=== PATIENT | female | born 1970 | race American Indian/Alaskan Native ===

== ENCOUNTER 2019-07-25 13:53 | Emergency (ER) | payer SELFPAY ==
[2019-07-25] MEDS ORDERED: IBUPROFEN 800 MG TAB PO ONE (14:13)
[2019-07-25] MEDS ORDERED: traMADol 50 MG TAB PO ONE (14:13)
--- NOTE | 2019-07-25 14:50 | XRay Report ---
CERVICAL SPINE 3 VIEWS INDICATION / CLINICAL INFORMATION: Severe neck pain radiating into the right shoulder. Difficulty swallowing for 2 days. COMPARISON: None available. FINDINGS: BONES / JOINT(S): There are moderate anterior hypertrophic changes from C3-4 through C6-7. There is o nly mild disc space narrowing present. There is no evidence of fracture, subluxation or destructive l esion. SOFT TISSUES: The prevertebral soft tissues and airway are normal. ADDITIONAL FINDINGS: The visualized lung apices are clear. Signer Name: Wild Holbrook MD Signed: 07/25/2019 2:46 PM Workstation Name: [id number]
--- NOTE | 2019-07-25 15:12 | Emergency Department Report ---
ED General Adult HPI - General Chief complaint: Pain General Stated complaint: PAIN IN NECK AND ARM Time Seen by Provider: 07/25/19 14:13 Source: patient Mode of arrival: Ambulatory Limitations: No Limitations - History of Present Illness Initial comments: is a 48-year-old female who is complaining of 10 out of 10 severe pain in the right side of her neck that radiates into her right arm. Patient states the pain is constant. She states that she does not remember having slips and falls. She denies heavy lifting. Patient states any movement of the right upper extremity or with moving her head results and electrical intense pain that radiates down to her fingers. She denies any fever cough cold congestion nausea vomiting at this time. Severity scale (0 -10): 5 - Related Data Previous Rx's Medication Instructions Recorded Last Taken Type Ibuprofen [Motrin 800 MG tab] 800 mg PO Q8HR PRN #10 tablet 07/25/19 Unknown Rx methOCARBAMOL [Robaxin TAB] 500 mg PO Q6H PRN #14 tablet 07/25/19 Unknown Rx Allergies Allergy/AdvReac Type Severity Reaction Status Date / Time No Known Allergies Allergy Unverified 07/25/19 14:02 ED Review of Systems ROS: Stated complaint: PAIN IN NECK AND ARM Other details as noted in HPI Comment: All other systems reviewed and negative ED Past Medical Hx - Social History Smoking Status: Current Every Day Smoker Substance Use Type: None - Medications Home Medications: Home Medications Medication Instructions Recorded Confirmed Last Taken Type Ibuprofen [Motrin 800 MG tab] 800 mg PO Q8HR PRN #10 tablet 07/25/19 Unknown Rx methOCARBAMOL [Robaxin TAB] 500 mg PO Q6H PRN #14 tablet 07/25/19 Unknown Rx ED Physical Exam - General Limitations: No Limitations General appearance: alert, in no apparent distress - Head Head exam: Present: atraumatic, normocephalic - Eye Eye exam: Present: normal appearance, PERRL, EOMI - ENT ENT exam: Present: mucous membranes moist - Neck Neck exam: Present: normal inspection, tenderness - Respiratory Respiratory exam: Present: normal lung sounds bilaterally. Absent: respiratory distress, wheezes, rales, rhonchi - Cardiovascular Cardiovascular Exam: Present: regular rate, normal rhythm. Absent: systolic murmur, diastolic murmur, rubs, gallop - GI/Abdominal GI/Abdominal exam: Present: soft, normal bowel sounds - Extremities Exam Extremities exam: Present: normal inspection - Back Exam Back exam: Present: normal inspection - Neurological Exam Neurological exam: Present: alert, oriented X3 - Psychiatric Psychiatric exam: Present: normal affect, normal mood - Skin Skin exam: Present: warm, dry, intact, normal color. Absent: rash ED Course Vital Signs 07/25/19 14:07 Temperature 98.6 F Pulse Rate 96 H Respiratory 16 Rate Blood Pressure 119/67 O2 Sat by Pulse 99 Oximetry ED Medical Decision Making - Radiology Data Ordering Physician: CANDICE PERALTA MD Date of Service: 07/25/19 Procedure(s): XR spine cervical 2-3V Accession Number(s): [id number] cc: CANDICE PERALTA MD Fluoro Time In Minutes: CERVICAL SPINE 3 VIEWS INDICATION / CLINICAL INFORMATION: Severe neck pain radiating into the right shoulder. Difficulty swallowing for 2 days. COMPARISON: None available. FINDINGS: BONES / JOINT(S): There are moderate anterior hypertrophic changes from C3-4 through C6-7. There is only mild disc space narrowing present. There is no evidence of fracture, subluxation or destructive lesion. SOFT TISSUES: The prevertebral soft tissues and airway are normal. ADDITIONAL FINDINGS: The visualized lung apices are clear. Signer Name: Wild Holbrook MD - Medical Decision Making Although the patient is no trauma the patient did have pain out of proportion to the exam. X-ray was taken to ensure the patient didn't have any pathological fractures. Patient's x-ray shows significant degenerative changes. Patient was given pain management and the patient will be given follow-up with orthopedics Critical care attestation.: If time is entered above; I have spent that time in minutes in the direct care of this critically ill patient, excluding procedure time. ED Disposition Clinical Impression: Cervical spine degeneration Qualifiers: Spinal osteoarthritis complication: with radiculopathy Qualified Code(s): M47.22 - Other spondylosis with radiculopathy, cervical region Disposition: TO HOME OR SELFCARE Is pt being admited?: No Does the pt Need Aspirin: No Condition: Stable Instructions: Cervical Radiculopathy (ED) Referrals: WILD PORTER MD [Staff Physician] - 3-5 Days Time of Disposition: 15:13
[2019-07-25 15:29] VITALS: BP 114/65
== END 2019-07-25 15:24 | disposition home or self-care (01) ==
LOC: ED 13:53
DX: M47.22 Other spondylosis with radiculopathy, cervical region (principal); F17.200 Nicotine dependence, unspecified, uncomplicated; Z79.899 Other long term (current) drug therapy
CPT/HCPCS: 72040; 99283

== ENCOUNTER 2019-12-07 16:58 | Emergency (ER) | payer SELFPAY ==
[2019-12-07] MEDS ORDERED: IPRATROPIUM/ALBUTEROL SULFATE 3 ML AMPUL.NEB IH ONE ×2 (17:14→17:18)
[2019-12-07] MEDS ORDERED: methylPREDNISolone Sod Succinate 125 MG/2 ML INJ IM ONE (18:26)
[2019-12-07] MEDS ORDERED: ALBUTEROL 2.5 MG/3 ML NEBU IH ONE (18:27)
[2019-12-07] MEDS ORDERED: IPRATROPIUM 0.02% NEBU 2.5 ML IH ONE (18:27)
--- NOTE | 2019-12-07 18:30 | Emergency Department Report ---
ED Asthma HPI - General Chief Complaint: Adult Asthma Stated Complaint: SOB Time Seen by Provider: 12/07/19 18:22 Source: patient Mode of arrival: Ambulatory Limitations: No Limitations - History of Present Illness Initial Comments: Patient is 49 years old female with history of sickle cell trait and asthma. Patient presented to the ER complaining of shortness of breath, wheezing and cough for the last 4 days. Patient stated the symptoms started with runny nose and congestion. Patient stated that she does not have any home medicine for asthma since she does not have frequent attack. Patient denied any fever, chills, chest pain, nausea or vomiting. Patient denied any recent travel outside [place]. MD Complaint: "asthma attack", shortness of breath, wheezing -: days(s) (4) Asthma History: childhood onset Severity: moderate Context: recent URI Associated Symptoms: productive cough. denies: fever, chest pain, hemoptysis, leg edema - Related Data Current Asthma Therapy: none Previous Rx's Medication Instructions Recorded Last Taken Type Ibuprofen [Motrin 800 MG tab] 800 mg PO Q8HR PRN #10 tablet 07/25/19 Unknown Rx methOCARBAMOL [Robaxin TAB] 500 mg PO Q6H PRN #14 tablet 07/25/19 Unknown Rx Allergies Allergy/AdvReac Type Severity Reaction Status Date / Time No Known Allergies Allergy Unverified 07/25/19 14:02 ED Review of Systems ROS: Stated complaint: SOB Other details as noted in HPI Comment: All other systems reviewed and negative Constitutional: denies: chills, fever Respiratory: cough, shortness of breath, wheezing. denies: orthopnea, SOB with exertion, SOB at rest Cardiovascular: palpitations. denies: chest pain Gastrointestinal: denies: abdominal pain, nausea, vomiting, diarrhea, const ipation Neurological: denies: headache, weakness ED Past Medical Hx - Social History Smoking Status: Former Smoker Substance Use Type: None - Medications Home Medications: Home Medications Medication Instructions Recorded Confirmed Last Taken Type Ibuprofen [Motrin 800 MG tab] 800 mg PO Q8HR PRN #10 tablet 07/25/19 Unknown Rx methOCARBAMOL [Robaxin TAB] 500 mg PO Q6H PRN #14 tablet 07/25/19 Unknown Rx ED Physical Exam - General Limitations: No Limitations General appearance: alert, in no apparent distress - Head Head exam: Present: atraumatic, normocephalic, normal inspection - Eye Eye exam: Present: normal appearance - ENT ENT exam: Present: normal exam, mucous membranes moist - Neck Neck exam: Present: normal inspection, full ROM. Absent: tenderness, meningismus - Respiratory Respiratory exam: Present: respiratory distress, wheezes, rhonchi, prolonged expiratory. Absent: rales, stridor, accessory muscle use, decreased breath sounds - Cardiovascular Cardiovascular Exam: Present: tachycardia - GI/Abdominal GI/Abdominal exam: Present: soft, normal bowel sounds. Absent: distended, tenderness, guarding, rebound, rigid, organomegaly, mass, bruit, pulsatile mass, hernia - Extremities Exam Extremities exam: Present: normal inspection, full ROM, normal capillary refill. Absent: pedal edema, calf tenderness - Back Exam Back exam: Present: normal inspection, full ROM. Absent: CVA tenderness (R), CVA tenderness (L) - Neurological Exam Neurological exam: Present: alert, oriented X3, CN II-XII intact, normal gait, reflexes normal. Absent: motor sensory deficit - Psychiatric Psychiatric exam: Present: normal mood - Skin Skin exam: Present: warm, intact, normal color ED Course Vital Signs 12/07/19 12/07/19 12/07/19 17:01 17:34 19:20 Temperature 98.8 F Pulse Rate 145 H 125 H 117 H Pulse Rate [ Anterior Bilateral Throughout] Respiratory 26 H 20 Rate Respiratory Rate [Anterior Bilateral Throughout] Blood Pressure 122/49 125/70 [Left] O2 Sat by Pulse 96 100 Oximetry 12/07/19 19:49 Temperature Pulse Rate Pulse Rate [ 136 H Anterior Bilateral Throughout] Respiratory Rate Respiratory 20 Rate [Anterior Bilateral Throughout] Blood Pressure [Left] O2 Sat by Pulse Oximetry ED Medical Decision Making - Lab Data Result diagrams: 12/07/19 18:32 12/07/19 18:32 - Radiology Data Radiology results: report reviewed - Medical Decision Making Patient is 49 years old female with history of sickle cell trait and asthma. Patient presented to the ER complaining of shortness of breath, wheezing and cough for the last 4 days. Patient stated the symptoms started with runny nose and congestion. Patient stated that she does not have any home medicine for ast hma since she does not have frequent attack. Patient denied any fever, chills, chest pain, nausea or vomiting. Patient denied any recent travel outside [place]. Patient received albuterol and Atrovent twice in the ER. She also received Solu-Medrol 125 mg IV. Patient stated that she is feeling much better. Labs reviewed and is unremarkable. Chest x-ray is negative for acute finding. No clinical evidence to suggest pulmonary embolism or congestive heart failure or any other significant pathology at this moment. Patient given prescription for albuterol, prednisone, Robitussin-AC and Zithromax. Patient advised to follow- up with her primary care physician in the next 2 to 3 days and to return to the ER if she develop any new symptoms. Critical care attestation.: If time is entered above; I have spent that time in minutes in the direct care of this critically ill patient, excluding procedure time. ED Disposition Clinical Impression: Asthma exacerbation, Acute bronchitis Disposition: - TO HOME OR SELFCARE Is pt being admited?: No Condition: Stable Instructions: Acute Bronchitis (ED), Asthma (ED) Referrals: MIKI SANCHEZ MD [Primary Care Provider] - 3-5 Days
[2019-12-07 18:47] LABS: Basophils % (Auto) 0.4 % (0.0-1.8); Eosinophils # (Auto) 0.1 K/mm3 (0.0-0.4); Eosinophils % (Auto) 1.1 % (0.0-4.3); Hematocrit 33.2 % (30.3-42.9); Hemoglobin 11.2 gm/dl (10.1-14.3); Lymphocytes % (Auto) 14.2 % (13.4-35.0); Mean Corpuscular HGB Conc 34 % (30-34); Mean Corpuscular Volume 84 fl (79-97); Monocytes # (Auto) 0.5 K/mm3 (0.0-0.8); Monocytes % (Auto) 7.7 % (0.0-7.3); Platelet Count 358 K/mm3 (140-440); Red Blood Count 3.95 M/mm3 (3.65-5.03); Red Cell Distribution Width 18.1 % (13.2-15.2)
[2019-12-07 19:06] LABS: Alanine Aminotransferase 7 units/L (7-56); Albumin 4.1 g/dL (3.9-5); BUN/Creatinine Ratio 6; Blood Urea Nitrogen 5 mg/dL (7-17); Calcium 8.9 mg/dL (8.4-10.2); Hemolysis Index 3
[2019-12-07] MEDS ORDERED: methylPREDNISolone Sod Succinate 125 MG/2 ML INJ IV ONE (19:18)
--- NOTE | 2019-12-07 19:37 | XRay Report ---
Chest single view INDICATION: Dyspnea IMPRESSION: No acute cardiopulmonary abnormality. Signer Name: Sid Blackburn MD Signed: 12/07/2019 7:32 PM Workstation Name: [id number]
[2019-12-07 21:48] VITALS: BP 116/87
== END 2019-12-07 21:27 | disposition home or self-care (01) ==
LOC: ED 16:58
DX: J45.901 Unspecified asthma with (acute) exacerbation (principal); J20.9 Acute bronchitis, unspecified; Z87.891 Personal history of nicotine dependence; Z79.1 Long term (current) use of non-steroidal anti-inflammatories (NSAID); Z79.899 Other long term (current) drug therapy
CPT/HCPCS: 36415; 71045; 80053; 85025; 94640; 96374; 99284; J2930; 94644

== ENCOUNTER 2020-08-06 18:10 | Emergency (ER) | payer SELFPAY ==
[2020-08-06 18:20] VITALS: BP 101/58
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
== END 2020-08-06 20:20 | disposition left against medical advice (07) ==
LOC: ED 18:10
DX: R07.9 Chest pain, unspecified (principal); Z53.21 Procedure and treatment not carried out due to patient leaving prior to being seen by health care provider

== ENCOUNTER 2020-12-10 05:33 | Emergency (ER) | payer SELFPAY ==
[2020-12-10 05:47] VITALS: BP 104/86
--- NOTE | 2020-12-10 06:18 | XRay Report ---
. XR hip 2-3V LT INDICATION / CLINICAL INFORMATION: Left hip pain. COMPARISON: None available. FINDINGS: No acute fracture. Normal alignment. Joint spaces are preserved. No destructive osseous lesion or s uspicious periosteal reaction. Impression: 1.No significant osseous abnormality. Signer Name: Migel Rocha MD Signed: 12/10/2020 6:13 AM Workstation Name: [id number]
== END 2020-12-10 06:00 | disposition left against medical advice (07) ==
LOC: ED 05:33
DX: M25.552 Pain in left hip (principal); Z53.21 Procedure and treatment not carried out due to patient leaving prior to being seen by health care provider